=== PATIENT | female | born 1960 | race Caucasian/White ===

== ENCOUNTER 2018-06-04 09:30 | Inpatient (IN) | payer BC ==
[2018-06-15] MEDS ORDERED: CEFAZOLIN 2 Gram 2 GM/50 ML BAG IVPB ONE (06:00)
[2018-06-15] MEDS ORDERED: VANCOMYCIN HCL 1,000 MG in DEXTROSE 5 % IN WATER 250 ML IVPB ONE ×2 (06:00)
[2018-06-15] MEDS ORDERED: FAMOTIDINE 20MG TABLET PO ONE (06:00)
[2018-06-15] MEDS ORDERED: MECLIZINE 25 MG TABLET PO ONE (06:00)
[2018-06-15] MEDS ORDERED: CELECOXIB 100 MG CAPSULE PO ONE (06:00)
[2018-06-15] MEDS ORDERED: METOCLOPRAMIDE 10 MG TABLET PO ONE (06:00)
[2018-06-15 07:51] LABS: ABO GROUP O; ANTIBODY SCREEN NEGATIVE (NEGATIVE); RH TYPE POSITIVE
[2018-06-15] MEDS ORDERED: ZOLPIDEM TARTRATE 5 MG TABLET PO PRN (10:51)
[2018-06-15] MEDS ORDERED: NALOXONE 0.4 MG/1 ML VIAL IVP PRN (10:51)
[2018-06-15] MEDS ORDERED: BISACODYL 10 MG SUPP RC PRN (10:51)
[2018-06-15] MEDS ORDERED: DIPHENHYDRAMINE HCL 25 MG CAPSULE PO PRN (10:51)
[2018-06-15] MEDS ORDERED: KETOROLAC 30 MG/ML VIAL IVP PRN ×2 (10:51)
[2018-06-15] MEDS ORDERED: ONDANSETRON HCL IV 4 MG/2 ML VIAL IVP PRN (10:51)
[2018-06-15] MEDS ORDERED: ACETAMINOPHEN 325 MG TAB PO PRN (10:51)
[2018-06-15] MEDS ORDERED: AL HYDROX/MAG HYDROX 30ML UD PO PRN (10:51)
[2018-06-15] MEDS ORDERED: MAGNESIUM HYDROXIDE 30 ML UDC PO PRN (10:51)
[2018-06-15] MEDS: POTASSIUM CHLORIDE/D5-0.9%NACL 20 MEQ/1,000 ML BAG IV SCH ×2 (12:46→21:16)
[2018-06-15] MEDS: TRAMADOL HCL 50 MG TABLET PO PRN (13:14)
[2018-06-15] MEDS ORDERED: ROPIVACAINE HCL (NAROPIN) /PF 5MG/ML 20ML VIAL IV ONE (13:15)
[2018-06-15] MEDS ORDERED: 0.9 % SODIUM CHLORIDE 100ML 100 ML IV ONE (13:15)
[2018-06-15] MEDS ORDERED: DEXAMETHASONE 4 MG/ML 1ML VIAL IVP ONE (13:15)
[2018-06-15] MEDS ORDERED: HYDROMORPHONE HCL 2 MG/ML VIAL IVP PRN (13:44)
[2018-06-15] MEDS: HYDROMORPHONE HCL 2 MG/ML VIAL IVP PRN ×3 (13:48→20:14)
[2018-06-15] MEDS ORDERED: TRANEXAMIC ACID 1,000 MG/10 ML ML IV ONE (14:00)
[2018-06-15] MEDS ORDERED: BUPIVACAINE 0.5% W/EPI MPF 30 ML VIAL IVP ONE (14:00)
--- NOTE | 2018-06-15 15:12 | Rehab Evaluation ---
Patient Information - Patient Information Diagnosis: R hip OA Ordered Treatment: PT Evaluate and Treat Status: Initial Evaluation Surgery: Yes (TKA R) Date of Surgery: 06/15/18 Past Medical/Surgical Hx: PAST MEDICAL/SURGICAL HISTORY Past Surgical History HYST LEFT WRIST ORIF PETRA TUBAL LIGATION PMH - Respiratory Hx Respiratory Disorders Yes Hx Bronchitis Yes: YRS AGO Hx of URI Yes: JUST GOT OVER COLD PMH - Cardiovascular Hx Cardiovascular Disorders Yes Exercise Tolerance Good Comment: HYPERLIPIDEMIA PMH - Neuro Hx Neurological Disorders No PMH - GI Hx Gastrointestinal Disorders No PMH - Hx Genitourinary Disorders No Comment: S/P HYST PMH - Endocrine Hx Endocrine Disorders No PMH - Musculoskeletal Hx Musculoskeletal Disorders Yes Hx Arthritis Yes: RIGHT HIP HANDS SHOULDERS POSSIBLY Hx Back Injury Yes: LBP SINCE PROBLEMS WITH HIP PMH - Psych Hx Psychiatric Problems No PMH - Hematology/Oncology Hx Hematology/Oncology Yes Disorders Hx Blood Transfusion Reaction No Premorbid Status: Detail (The patient was independent with all mobility prior to surgery.) Social History: Detail (The patient lives with significant other in 2 story house with 5 steps at the enterance. The patient will be staying on the main floor initially. The bathroom is equipped with a walk in shower , shower seat, grab bars, elevated toilet seat with grab bars. The patient has a walker with wheels.) Precautions: [place], Fall, Other (THR precautions and WBAT on the R LE.) - Time With Patient Total Time Spent With Patient (Min): 30 Treatment Procedures: Detail (Initial Evaluation and gait training.) Subjective Information - Subjective Information Per Patient (The patient had no complaints of pain.) Objective Data - Mental Status Patient Orientation: Oriented x3 - Visual Perception Appears within normal limits for therapeutic activities - ROM Not within normal limits (The patient's R hip is within total hip precautions. All other LE AROM is WNL.) - Strength/Tone Not within normal limits (The patient's R LE strength was not tested s/p surgery but was functional ie: patient is able to lift R LE in and out of bed. Patient's R LE strength is WFL.) - Bed Mobility Independent (The patient is independent with supine to sit transfer and minimal assist with R LE with sit to supine transfer. The patient was independent with scooting.) - Transfers Independent (The patient was independent with sit to and stand transfer.) - Balance Balance Sitting: Good Balance Standing: Good - Gait Detail (The patient ambulated with 2 wheeled walker a distance of 60 feet x 1 WBAT on the R LE.) Therapy Assessment - Therapy Assessment Detail (The patient was independent with bed mobility , transfers and supervision for safety only with ambulation. Feel the patient will progress well with mobility.) Patient Education - Patient Education Teaching Topic: Precautions (The patient exhibited good understanding of THR precautions.) Response: Return Demonstration, Verbalize Understanding Teaching Method: Discussion Teaching Recipient: Patient Barriers To Learning: None Problem List - Problem List Physical Therapy Problem List: Detail (1) Decreased R LE as to be expected s/p surgery. 2) Impaired gait s/p surgery.) Goals - Goals Physical Therapy Goals: 1) The patient will be independent with THR HEP. 2) The patient will ambulate on stairs using proper technique with supervision. Prognosis - Prognosis Good Plan - Plan Physical Therapy Plan: PT 1-2 sessions for gait training on levels and stairs and instruction in THR HEP.
[2018-06-15] MEDS ORDERED: HYDROCODONE/APAP 10/325 TABLET PO PRN (15:45)
[2018-06-15] MEDS: CEFAZOLIN 2 Gram 2 GM/50 ML BAG IVPB SCH (16:52)
[2018-06-15] MEDS: HYDROCODONE/APAP 10/325 TABLET PO PRN ×2 (18:33→22:20)
[2018-06-15] MEDS: DOCUSATE SODIUM 100 MG CAPSULE PO SCH (21:08)
[2018-06-15] MEDS ORDERED: ATORVASTATIN 20 MG TABLET PO SCH (22:00)
[2018-06-16] MEDS: HYDROMORPHONE HCL 2 MG/ML VIAL IVP PRN ×2 (00:08→10:16)
[2018-06-16] MEDS: CEFAZOLIN 2 Gram 2 GM/50 ML BAG IVPB SCH ×2 (00:09→10:13)
[2018-06-16] MEDS: TRAMADOL HCL 50 MG TABLET PO PRN (03:19)
[2018-06-16] MEDS: POTASSIUM CHLORIDE/D5-0.9%NACL 20 MEQ/1,000 ML BAG IV SCH (05:41)
[2018-06-16 07:20] LABS: BLOOD UREA NITROGEN 10 mg/dL (6-20); CREATININE 0.4 mg/dL (0.5-0.9); EST GLOMERULAR FILTRATION RATE > 60 mL/min; GLUCOSE,RANDOM 115 mg/dL (74-109)
[2018-06-16 08:23] LABS: HEMATOCRIT 30.9 % (35.0-47.0); HEMOGLOBIN 9.9 gm/dl (11.6-16.0)
--- NOTE | 2018-06-16 08:30 | Operative Note ---
DATE OF SURGERY: 06/15/2018 PREOPERATIVE DIAGNOSIS: End-stage arthrosis of the right hip. POSTOPERATIVE DIAGNOSIS: End-stage arthrosis of the right hip. OPERATION: Cementless right total hip arthroplasty using [employer] components with a size 56 no-hole Reflection cup, 35-degree 32 mm diameter highly crosslinked liner, a size 14 high-offset cementless [place] stem with a +4 32 mm diameter Oxinium head. Staff Surgeon: Rudy Saucedo MD Anesthesia: Spinal. PREPARATION: Chloraprep. INDIVIDUAL CONSIDERATIONS: None. PROCEDURE: The patient was taken to the operating room, placed supine on the operating room table. She had a successful induction of spinal anesthetic. She was then placed on her side right side up and her right leg and hip were prepped and draped in the usual fashion. The patient had direct posterior approach to the hip. Sharp dissection carried down through skin and subcutaneous tissues. Small veins were coagulated with a Bovie. The tensor gluteal fascia was opened along the entire length of the incision, and deep retractors were placed. Short external rotators were identified and piriformis fossa removed. This exposed the posterior capsule. Posterior capsulectomy was performed. Hip was dislocated posteriorly. The patient had exposed bone on both sides with marginal osteophytes on both sides. A femoral neck cut was then made freehand about a fingerbreadth above the less troc using an oscillating saw. A rim capsulectomy was then performed. Ligamentum was debrided with a Bovie. Starting with a 45 to medialize, I reamed to the introitus, which was 55 for a size 56 cup. I slightly under-reamed to 54. I then impacted a size 56 no-hole Reflection cup in 20 degrees of forward flexion and 40 degrees of abduction using the extraarticular alignment guide and bony landmarks. There was solid cementless fixation. After irrigation, I placed a center cap screw and then impacted a 35-degree offset liner with the offset posteriorly and inferiorly. This gave an excellent stable acetabular construct, and this was packed off. The proximal femur was delivered into the wound, and box cutting osteotome was used to remove the proximal metaphyseal bone. Mid stem reaming was done to a size 14. I just started barely feeling cortex at about 12. Broaching to 14, anteversion was dialed in to about 25 degrees. After calcar reaming, I was able to get solid stability with a +4 trial. I removed the broach as a trial, irrigated out completely, and then impacted a high-offset size 14 [place] stem with solid calcar contact and solid cementless fixation. I then irrigated everything out, dried the Terrence taper, impacted a +4 32 mm dial Oxinium head, reduced the hip. Full stability, full anterior stability in external rotation and full extension. I actually could not even dislocate the hip by flexing it. I flexed her up past 90. Even at 90 degrees of internal rotation, even flexed up 140 degrees and internally rotated, it was still stable. Sciatic nerve was inspected and found to be completely intact. I had excellent hemostasis. After irrigation, I went head and filled the hip joint with 30 mL of saline mixed with 1 g of tranexamic acid. I then closed the fascia with a running #2 quill. The subcu was closed in layers with running 0 quill, skin was closed with mary. Skin and subcutaneous tissue were then infiltrated with 30 mL of 0.5% Marcaine with epinephrine and a sterile bulky compressive DWAYNE-type dressing was applied. The patient tolerated the procedure well. Needle and sponge counts were correct. Estimated blood loss was 100 mL. She was taken back to recovery in good condition. There were no complications. JULEE
[2018-06-16] MEDS ORDERED: FERROUS SULFATE 325 MG TAB PO SCH (10:00)
[2018-06-16] MEDS ORDERED: MULTIVITAMINS/MINERALS TABLET PO SCH (10:00)
[2018-06-16] MEDS ORDERED: RIVAROXABAN 10 MG TABLET PO SCH (10:00)
[2018-06-16] MEDS: DOCUSATE SODIUM 100 MG CAPSULE PO SCH (10:12)
--- NOTE | 2018-06-16 11:35 | Rehab Evaluation ---
Patient Information - Patient Information Diagnosis: R hip OA Ordered Treatment: OT Evaluate and Treat Status: Initial Evaluation Surgery: Yes (TKA R) Date of Surgery: 06/15/18 Past Medical/Surgical Hx: PAST MEDICAL/SURGICAL HISTORY Past Surgical History HYST LEFT WRIST ORIF PETRA TUBAL LIGATION PMH - Respiratory Hx Respiratory Disorders Yes Hx Bronchitis Yes: YRS AGO Hx of URI Yes: JUST GOT OVER COLD PMH - Cardiovascular Hx Cardiovascular Disorders Yes Exercise Tolerance Good Comment: HYPERLIPIDEMIA PMH - Neuro Hx Neurological Disorders No PMH - GI Hx Gastrointestinal Disorders No PMH - Hx Genitourinary Disorders No Comment: S/P HYST PMH - Endocrine Hx Endocrine Disorders No PMH - Musculoskeletal Hx Musculoskeletal Disorders Yes Hx Arthritis Yes: RIGHT HIP HANDS SHOULDERS POSSIBLY Hx Back Injury Yes: LBP SINCE PROBLEMS WITH HIP PMH - Psych Hx Psychiatric Problems No PMH - Hematology/Oncology Hx Hematology/Oncology Yes Disorders Hx Blood Transfusion Reaction No Premorbid Status: Detail (The patient was independent with all mobility and ADLs prior to surgery.) Social History: Detail (The patient lives with significant other in 2 story house with 5 steps at the enterance. The patient will be staying on the main floor initially. The bathroom is equipped with a walk in shower , shower seat, grab bars, elevated toilet seat with grab bars. The patient has a walker with wheels.Patient will have help 24-7 for first 4 days then she will be home alone during the day while spouse is at work. Grandson will be coming over in the morning to assist with patient's austen hose and socks.) Precautions: [place], Fall, Other (THR precautions and WBAT on the R LE.) - Time With Patient Total Time Spent With Patient (Min): 20 Treatment Procedures: Detail (OT eval low) Objective Data - Pain Pain Present: Yes Pain Intensity: 4 (R hip) Pain Scale Used: Numeric (1 - 10) - Mental Status Patient Orientation: Oriented x3 - Visual Perception Appears within normal limits for therapeutic activities - ROM Within normal limits (BUE's) - Strength/Tone Within normal limits (BUE's) - Coordination Appears within normal limits for therapeutic activities - Bed Mobility Needs Assist (Patient used looped gait belt independently to move RLE into bed. Patient has a gait belt at home and will use this vs a leg airplane tester to complete RLE management during bed mobility.) - Transfers Independent (sit <> stand t/f's) - Balance Balance Sitting: Good - Sensation Intact (Ottoniel fingers) - Gait Detail (Refer to PT note) - ADL's/IADL's Detail (Patient was educated on and demonstrated understanding of ADL equipment use during LB drsg in order to maintain hip precautions. Patient independently donned pants using story teller. She was independent with sock removal and sock don using sock aid. Patient independent with UB drsg. She was able to verbalize wrapping technique of incision during showering to prevent water from nearing incision. Patient will have 24 hour assistance available for first 4 days and then grandson will be coming over to assist with socks and austen hose as patient did not want to get a sock aid. Patient has story teller at home.) Therapy Assessment - Therapy Assessment Detail (Patient demonstrated independence and safety with LB drsg using ADL equipment and maintaining hip precautions. She has a story teller already at home and will be having help available if needed. No further inpatient OT needed at this time.) Patient Education - Patient Education Teaching Topic: Equipment Use Response: Return Demonstration Teaching Method: Discussion, Demonstration Teaching Recipient: Patient, Family Barriers To Learning: None Problem List - Problem List Physical Therapy Problem List: Detail (1) Decreased R LE as to be expected s/p surgery. 2) Impaired gait s/p surgery.) Goals - Goals Physical Therapy Goals: 1) The patient will be independent with THR HEP. 2) The patient will ambulate on stairs using proper technique with supervision. Prognosis - Prognosis Good Plan - Plan Physical Therapy Plan: PT 1-2 sessions for gait training on levels and stairs and instruction in THR HEP. Occupational Therapy Plan: No further inpatient OT needed at this time.
[2018-06-16] MEDS ORDERED: PROPOFOL 10 MG/ML VIAL IV ONE (12:21)
[2018-06-16] MEDS ORDERED: KETAMINE HCL 100MG/1ML VIAL INJ ONE (12:21)
[2018-06-16] MEDS ORDERED: MIDAZOLAM HCL 2MG/2ML VIAL IV ONE (12:21)
--- NOTE | 2018-06-16 12:39 | Physical Therapy Tx Note ---
Physical Therapy Tx Note - Treatment Note Tolerated: Good Physical Therapy Tx Note: Detail (The patient was independent with bed mobility.The patient was independent with THR HEP including supine hip abduction , ankle pumps, quad sets, gluteal sets, hamstring sets, heel slides. The patient ambulated with front wheeled walker WBAT on the R LE a distance of 120 feet x 1 independently. The patient ambulated on 3 steps with use of railing and folded walker with supervision for safety only using proper technique with patient's daughter present. The patient has met all inpatient goals and was discharged from inpatient PT.) Physical Therapy Problem List: Detail (1) Decreased R LE as to be expected s/p surgery. 2) Impaired gait s/p surgery.) Physical Therapy Goals: 1) The patient will be independent with THR HEP (Goal Met). 2) The patient will ambulate on stairs using proper technique with supervision. (Goal Met) Physical Therapy Plan: The patient has met all inpatient goals and is discharged from inpatient PT.
--- NOTE | 2018-06-17 08:30 | Discharge Summary ---
DATE OF ADMISSION: 06/15/2018 DATE OF DISCHARGE: 06/16/2018 DATE OF SURGERY: 06/15/2018 HISTORY: The patient is a delightful 57-year-old female who presents with end-stage arthrosis of her right hip. She was admitted after right total hip arthroplasty. Postoperatively, she did well. Her hospital course was unremarkable. The plan is to discharge her home in the care of her family. Home PT visiting nurse has been arranged. She will be given [place] for pain, Atarax for itching, and Xarelto followed by aspirin for DVT prophylaxis. Sutures will be removed by the visiting nurse in 2 weeks and she will follow up in my office in 4 weeks. FINAL DIAGNOSIS AND PRIMARY DIAGNOSIS: End-stage arthrosis of the right hip. OPERATIONS AND PROCEDURES: Cementless right total hip arthroplasty. DISCHARGE CONDITION: Good. JULEE
== END 2018-06-16 13:45 | disposition home health service (06) | DRG 470 ==
LOC: MEDSURG 06-15 06:39
PROVIDERS: ADMIT Orthopaedic Surgery; ATTEND Orthopaedic Surgery
PROC: 0SR906A Replacement of Right Hip Joint with Oxidized Zirconium on Polyethylene Synthetic Substitute, Uncemented, Open Approach (ICD-10-PCS; principal; 2018-06-15 09:00)
DX: M16.11 Unilateral primary osteoarthritis, right hip (principal); E78.00 Pure hypercholesterolemia, unspecified; F17.210 Nicotine dependence, cigarettes, uncomplicated
CPT/HCPCS: 76942; 80048; 85014; 85018; 86850; 86900; 86901; 97110; 97530; C1776; J1885; J3480; J3490; J7060